=== PATIENT | female | born 1985 | race Caucasian/White ===

== ENCOUNTER 2016-04-29 22:39 | Emergency (ER) | payer OTHER ==
[~2016-04-29] VITALS: Ht 134.6 cm; Wt 69.0 kg
[~2016-04-29 22:39] MED LIST: FAMO-18 PO; HYDR-3498 PO; IBUP-1542 PO; KETO5DRO58 OP; ONDA4TAB35 PO
[2016-04-30] VITALS: Ht 134.6 cm; Wt 69.0 kg
[2016-04-30] MEDS ORDERED: NAPR-260 PO (02:20)
[2016-04-30] MEDS ORDERED: PHEN-537 PO (02:20)
--- NOTE | 2016-04-30 02:27 | ERD ---
ER Documentation Chief Complaint Date/Time DATE: 04/30/16 TIME: 02:22 Chief Complaint hematuria/dysuria/vaginal itch/back pain to R leg since yest. on macrobid HPI Patient is a 31-year-old female who presents to the emergency department with hematuria, dysuria, vaginal itching and back pain. She states that her UTI symptoms started approximately 3 days ago. Patient went to her primary care physician today and was prescribed Macrobid for a positive urinary tract infection. She states she is taking 1 dose of medication test far. She states that she has urinary frequency and has to urinate every hour. Patient denies any vaginal discharge. Patient denies any abdominal pain, pelvic pain, flank pain, fever, chills, nausea, vomiting. Patient also complaining of lower back pain which radiates down her right leg. Patient states that the back pain started today. Patient denies radiation of pain to abdomen or pelvic region. She denies any trauma, saddle anesthesia, bladder incontinence or stool incontinence. Patient states that she took ibuprofen earlier this morning with minimal alleviation of symptoms. ROS All systems reviewed and are negative except as per history of present illness. Medications Home Meds Active Scripts Hydrocodone/Acetaminophen ([place] 5-325 Tablet) 1 Each Tablet, 1 TAB PO Q6H Y for PAIN, #7 TAB Prov:REEMA CHEN PA-C 04/30/16 Diphenhydramine Hcl* (Diphenhydramine Hcl*) 25 Mg Capsule, 25 MG PO Q6 Y for ITCHING, #15 CAP Prov:REEMA CHEN PA-C 04/30/16 Naproxen* (Naprosyn*) 500 Mg Tablet, 500 MG PO BID Y for PAIN AND/OR INFLAMMATION, #30 TAB Prov:REEMA CHEN PA-C 04/30/16 Phenazopyridine Hcl* (Pyridium*) 100 Mg Tab, 100 MG PO TID, #12 TAB Prov:REEMA CHEN PA-C 04/30/16 Hydrocodone Bit-Acetaminophen* ([place]*) 5-325 Mg Tab, 1 TAB PO Q6 Y for PAIN, # 10 TAB Prov:ARABELLA COSTELLO PA-C 10/31/15 Ibuprofen* (Ibuprofen*) 600 Mg Tablet, 600 MG PO Q6, #30 TAB Prov:DEISY DICKENS PA-C 04/20/15 Ketotifen Fumarate (ZADITOR) 5 Ml Drops, 5 ML OP BID, #10 BOTTLE Prov:DEISY DICKENS PA-C 04/20/15 Ondansetron Hcl* (Zofran* ODT) 4 mg -ODT Tab.disper, 4 MG PO Q6 Y for NAUSEA AND /OR VOMITING for 3 Days, TAB Prov:MIRELLA MICHAUD MD 01/01/15 Famotidine* (Pepcid*) 20 Mg Tablet, 20 MG PO BID for 4 Days, TAB Prov:MIRELLA MICHAUD MD 01/01/15 Hydrocodone Bit-Acetaminophen* ([place]*) 5-325 Mg Tab, 1 TAB PO Q6 Y for PAIN for 4 Days, TAB Prov:MIRELLA MICHAUD MD 01/01/15 Allergies Allergies: Coded Allergies: No Known Allergy (Unverified , 10/31/15) PMhx/Soc History of Surgery: Yes ( x2) Anesthesia Reaction: No Hx Neurological Disorder: No Hx Respiratory Disorders: No Hx Cardiac Disorders: No Hx Psychiatric Problems: No Hx Miscellaneous Medical Probl: No Hx Alcohol Use: No Hx Substance Use: No Hx Tobacco Use: No FmHx Family History: No diabetes Physical Exam Vitals Vital Signs Date Time Temp Pulse Resp B/P Pulse Ox O2 Delivery O2 Flow Rate FiO2 04/30/16 03:06 98.2 73 18 106/59 99 Room Air 04/30/16 00:00 97.6 66 18 103/57 96 Physical Exam GENERAL: Well-developed, well-nourished female. Appears in no acute distress. HEAD: Normocephalic, atraumatic. EYES: Pupils are equally reactive bilaterally. EOMs grossly intact. No conjunctival erythema. ENT: Moist mucous membranes. No uvula deviation. No kissing tonsils. NECK: Supple. No lymphadenopathy or thyromegaly. No meningismus. LUNG: Clear to auscultation bilaterally. No rhonchi, wheezing, rales or coarse breath sounds. HEART: Regular rate and rhythm. No murmurs, rubs or gallops. ABDOMEN: No scars, ecchymosis or rashes noted. Soft and nondistended. +TTP of suprapubic region. Positive bowel sounds in all four quadrants. No rebound tenderness, no guarding. (-) McBurneys point tenderness. No CVA tenderness bilaterally. FEMALE GENITALIA: Normal external female genitalia. Normal vaginal mucosal without discharge. No thick white cottage-cheese discharge. BACK: No midline tenderness. +TTP of lumbar paraspinalis muscles bilateraly. + Straight leg raise test of right leg. EXTREMITIES: Equal pulses bilaterally. No peripheral clubbing, cyanosis or edema. No unilateral leg swelling. NEUROLOGIC: Alert and oriented. Moving all four extremities without any difficulty. Normal speech. Steady gait. SKIN: Normal color. Warm and dry. No rashes or lesions. Results 24 hrs Laboratory Tests Test 04/30/16 02:30 Bedside Urine Blood 3+ Bedside Urine Glucose (UA) Negative Bedside Urine Ketones (LAB) Negative Bedside Urine Leukocyte Esterase (L 2+ Bedside Urine Nitrite (LAB) Negative Bedside Urine Protein (LAB) 2+ Bedside Urine pH (LAB) 7.0 Procedures/MDM MEDICAL DECISION MAKING: Patient is a 31-year-old female who presents with dysuria, hematuria and lower back pain. Vital signs were reviewed. Patient was afebrile. Urine dip showed 3 + blood, 2+ leukocyte esterase. Urine was negative. Back exam revealed lumbar paraspinalis muscle tenderness and + Straight leg raise. Patient denies saddle anesthesia, trauma, urinary incontinence, or stool incontinence. Given these findings, the patients presentation is most consistent with urinary tract infection and lumbar sprain vs sciatica. I have a much lower clinical concern for cauda equina, spinal fracture, epidural abscess , pyelonephritis, nephrolithiasis. PRESCRIPTIONS: Phenazopyridine for dysuria Benadryl for vaginal itching [place], Naproxen for back pain Patient advised to continue Macrobid as prescribed by her PCP for UTI. DISCHARGE: At this time, patient is stable for discharge and outpatient management. I have instructed the patient to follow-up with his/her primary care physician in 1-2 days. Patient should repeat UA in 2 weeks to check for resolution of urinary tract infection. If symptoms persist, patient may need to see a specialist for further examinations and testing. I have instructed the patient to promptly return to the ER at any time for any new or worsening symptoms including increased pain, fever, nausea, vomiting, urinary changes or weakness. The patient and/or family expressed understanding of and agreement with this plan. All questions were answered. Home care instructions were provided. MEDICAL DECISION MAKING: This is a [] who presents with back pain. Vital signs were reviewed. Patient was afebrile. Patient denied any saddle anesthesia, urinary incontinence, bowel incontinence, night pain or recent trauma. Given these findings, the patients presentation is most consistent with []. I have a much lower clinical concern for cauda equine syndrome, spinal fractures, epidural abscess, spinal metastases , osteomyelitis, aortic dissection, ruptured or leaking AA, DJD, sciatica, lumbar strain, muscle spasm, pyelonephritis or nephrolithiasis. PRESCRIPTIONS: Naproxen Muscle relaxant DISCHARGE: At this time, patient is stable for discharge and outpatient management. RICE therapy and ROM exercises were advised to avoid stiffness. I have instructed the patient to follow-up with his/her primary care physician in 1-2 days. I have discussed with the patient the possibility of needing to see an search specialist for further workup and imaging if the pain persists. I have instructed the patient to promptly return to the ER for any new or worsening symptoms including increased pain, swelling, warmth, urinary incontinence, stool incontinence, weakness or numbness. The patient and/or family expressed understanding of and agreement with this plan. All questions were answered. Home care instructions were provided. Departure Diagnosis: Primary Impression: UTI (urinary tract infection) Urinary tract infection type: site unspecified Hematuria presence: with hematuria Qualified Code: N39.0 - Urinary tract infection with hematuria, site unspecified Additional Impression: Lower back pain Chronicity: acute Back pain laterality: right Sciatica presence: with sciatica Sciatica laterality: sciatica laterality unspecified Qualified Code : M54.40 - Acute right-sided low back pain with sciatica, sciatica laterality unspecified Condition: Stable Patient Instructions: Understanding Urinary Tract Infections (UTIs), Back Exercises: Lower Back Stretch Additional Instructions: Sammi Macrobid. [place] mucho liquidos. Llame al doctor MAANA y jason kelli JAMAAL PARA DENTRO DE 1-2 [place].Dgale a la secretaria que nosotros le instruimos hacer esta jamaal.Avise o llame si mcmanus condicin se empeora antes de la jamaal. Regresa aqui si peor o no mejor. REEMA CHEN PA-C Apr 30, 2016 02:27
[2016-04-30 02:29] LABS: URINE BLOOD (Dip) POC 3+ (NEGATIVE)
[2016-04-30] MEDS ORDERED: DIPH25CA6 PO (02:29)
[2016-04-30] MEDS ORDERED: HYDR-906 PO (02:49)
[2016-04-30 03:06] VITALS: BP 106/59; PULSE 73; RESP 18; TEMP 98.2
== END 2016-04-30 03:35 | disposition home or self-care (01) ==
LOC: FTE 22:39
DX: N39.0 Urinary tract infection, site not specified (principal); M54.40 Lumbago with sciatica, unspecified side
CPT/HCPCS: 81003; Z7502; 99283